=== PATIENT | female | born 1930 | race Caucasian/White ===

== ENCOUNTER 2018-04-03 07:07 | Day surgery (SDC) | payer OTHER ==
[2018-04-01 11:50] VITALS: BMI 15.0
[2018-04-03] MEDS ORDERED: LIDOCAINE HCL 2% (20ML MULTI-DOSE VIAL) NR ONE (07:09)
[2018-04-03] MEDS ORDERED: PROPOFOL 20 ML ONE ×2 (07:42→09:45)
[2018-04-03] MEDS ORDERED: SUCCINYLCHOLINE CHLORIDE 200 MG/10 ML VIAL ONE (07:42)
[2018-04-03] MEDS ORDERED: MIDAZOLAM HCL 2 MG/2 ML SINGLE DOSE VIAL ONE (07:43)
[2018-04-03 07:51] VITALS: BP 160/90; PULSE 108; TEMP 97.5
[2018-04-03] MEDS ORDERED: ROPIVACAINE HCL 0.5% 30ML VIAL ONE (07:51)
--- NOTE | 2018-04-07 22:28 | EKG ---
Test Reason : Blood Pressure : / mmHG Vent. Rate : 101 BPM Atrial Rate : 100 BPM P-R Int : 000 ms QRS Dur : 072 ms QT Int : 296 ms P-R-T Axes : 000 042 042 degrees QTc Int : 383 ms POOR DATA QUALITY, INTERPRETATION MAY BE ADVERSELY AFFECTED ATRIAL FIBRILLATION WITH RAPID VENTRICULAR RESPONSE CANNOT RULE OUT ANTERIOR INFARCT , AGE UNDETERMINED ABNORMAL ECG NO PREVIOUS ECGS AVAILABLE Confirmed by ADELE AMBRIZ MD ([id number]) on 04/07/2018 10:27:37 PM Referred By: Jeremy Raza Confirmed By:ADELE AMBRIZ MD
== END 2018-04-03 09:20 | disposition home or self-care (01) ==
LOC: FASU 07:07 → EDSEX 07:07 → FASU 09:20
PROVIDERS: ATTEND Orthopaedic Surgery Hand Surgery
PROC: 0PSH04Z Reposition Right Radius with Internal Fixation Device, Open Approach (ICD-10-PCS; principal; 2018-04-03)
DX: Z53.09 Procedure and treatment not carried out because of other contraindication (principal); S52.501A Unspecified fracture of the lower end of right radius, initial encounter for closed fracture; X58.XXXA Exposure to other specified factors, initial encounter; Y93.9 Activity, unspecified; Y92.9 Unspecified place or not applicable
CPT/HCPCS: 93005

== ENCOUNTER 2018-04-09 08:08 | Day surgery (SDC) | payer OTHER ==
[2018-04-05 13:23] VITALS: BMI 15.0
[2018-04-09] MEDS ORDERED: ROPIVACAINE HCL 0.5% 30ML VIAL ONE (08:22)
[2018-04-09] MEDS ORDERED: MIDAZOLAM HCL 2 MG/2 ML SINGLE DOSE VIAL ONE (08:22)
[2018-04-09] MEDS ORDERED: ACETAMINOPHEN 325 MG TABLET (FP) PO PRN (10:32)
[2018-04-09] MEDS ORDERED: ONDANSETRON 4 MG/2 ML VIAL IVPUSH PRN (10:32)
[2018-04-09] MEDS ORDERED: LACTATED RINGERS SOLUTION 1,000 ML IV SCH (10:45)
[2018-04-09 13:11] VITALS: BP 116/60; PULSE 78; TEMP 97.6
--- NOTE | 2018-04-09 17:09 | OP ---
DATE OF OPERATION: 04/09/2018 PREOPERATIVE DIAGNOSIS: Right comminuted, displaced, intraarticular distal radius fracture. POSTOPERATIVE DIAGNOSIS: Right comminuted, displaced, intraarticular distal radius fracture. OPERATIVE PROCEDURE: 1. Open reduction and internal fixation of right comminuted, intraarticular, displaced distal radius fracture with internal fixation of 3 or more fragments. 2. Right brachioradialis tenotomy. SURGEON: Chayo Munroe MD MOLD MAINTENANCE TECHNICIAN: ARABELLA Ramsay ANESTHESIA: Regional. INDICATION FOR PROCEDURE: The patient is an 87-year-old female with the above finding. She was indicated for operative treatment after discussion with her, her , and her daughter who is a hand surgeon. Nonoperative and operative treatments were discussed at length, and the patient, daughter, and all desired to proceed with operative fixation. She was initially scheduled to do surgery last week but had possible atrial fibrillation upon presentation to the hospital and was sent for cardiac clearance which has now been done. The family would all like to proceed surgically at this time. PROCEDURE: After proper identification of the patient and the correct operative site, the patient was brought to the operating room and placed supine on the operating table. All prominences were well padded. Regional anesthesia had been provided by the anesthesiologist and was adequate for the procedure. Intravenous antibiotics were given. A timeout procedure was performed. The right upper extremity was prepped and draped in the usual sterile fashion and an Esmarch bandage to exsanguinate the right upper extremity. Tourniquet was inflated to 250 mmHg. A longitudinal incision was made over the volar aspect of the wrist in line with the flexor carpi radialis tendon. The flexor carpi radialis tendon along with the contents of the carpal canal was bluntly and gently retracted in an ulnarward direction for the remainder of the procedure. The pronator quadratus was divided and elevated off the distal radius. A highly comminuted, displaced fracture was noted. Brachioradialis tenotomy was pulling on the radial styloid fragment and needed to be released. So, a brachioradialis tenotomy was performed in a subperiosteal fashion which allowed mobilization of the radial styloid fragment. All fragments were then able to be manipulated into a satisfactory position, and they were held with an Acumed AccuLock distal radius plate with proximal locking and non-locking screws and distal locking screws. This provided secure stable fixation of the fracture and satisfactory position. Distal radioulnar joint was stressed as was the scapholunate interval, and there was no evidence of instability. Wound was irrigated with saline and repaired in layers, including the pronator quadratus, with 4-0 Vicryl and 4-0 Monocryl suture. Steri-Strips, sterile dressings, and a splint were placed. The patient was reversed from anesthesia and brought to the recovery room in stable condition. Ron Silverio, the employment legal assistant, was integral throughout this procedure. The procedure could not have been performed without a skilled operative employment legal assistant. CHAYO MUNROE M.D. [id number]
== END 2018-04-09 12:30 | disposition home or self-care (01) ==
LOC: EDSEX → FASU 08:08
PROVIDERS: ATTEND Orthopaedic Surgery Hand Surgery
PROC: 0LN50ZZ Release Right Lower Arm and Wrist Tendon, Open Approach (ICD-10-PCS; 2018-04-09)
PROC: 0PSH04Z Reposition Right Radius with Internal Fixation Device, Open Approach (ICD-10-PCS; principal; 2018-04-09 09:33)
DX: S52.531A Colles' fracture of right radius, initial encounter for closed fracture (principal); X58.XXXA Exposure to other specified factors, initial encounter; Y93.9 Activity, unspecified; Y92.9 Unspecified place or not applicable
CPT/HCPCS: 73110-TC-RT-FY; 94760